=== PATIENT | male | born 1945 | race Hispanic/Latino ===

== ENCOUNTER 2018-05-25 10:11 | Observation (INO) | payer MEDICARE ==
--- NOTE | 2018-05-25 10:41 | C.PDOC ---
History Of Present Illness 72 y/o male with history of thoracic aortic aneurysm s/p repair and Aortic valve replacement 9 years ago presents to ED sent by primer assembler Dr. Fragoso for evaluation of pressure chest pain retro-sternal intermittently for 1 month. Pat ient states chest pain is worse with exertion and associated with sob. Denies fever, chills, nausea, vomiting, headache, vision changes, palpitations, abdominal pain, leg swelling or any other complaints at this time. Time Seen by Provider: 05/25/18 10:35 Chief Complaint (Nursing): Chest Pain History Per: Patient History/Exam Limitations: no limitations Onset/Duration Of Symptoms: Days Current Symptoms Are (Timing): Still Present Past Medical History Reviewed: Historical Data, Nursing Documentation, Vital Signs Vital Signs: Last Vital Signs Temp 99 F 05/25/18 10:15 Pulse 94 H 05/25/18 10:15 Resp 18 05/25/18 10:15 BP 165/75 H 05/25/18 10:15 Pulse Ox 98 05/25/18 10:15 - Medical History PMH: No Chronic Diseases Surgical History: No Surg Hx Family History: States: No Known Family Hx - Social History Hx Alcohol Use: No Hx Substance Use: No Review Of Systems Constitutional: Negative for: Fever, Chills Eyes: Negative for: Vision Change Cardiovascular: Positive for: Chest Pain Respiratory: Positive for: Shortness of Breath. Negative for: Cough Gastrointestinal: Negative for: Nausea, Vomiting, Abdominal Pain Musculoskeletal: Negative for: Neck Pain, Shoulder Pain, Back Pain Skin: Negative for: Rash Neurological: Negative for: Weakness, Numbness, Headache, Dizziness Physical Exam - Physical Exam Appears: Well, Non-toxic, No Acute Distress Skin: Warm, Dry, No Rash Head: Atraumatic, Normacephalic Eye(s): bilateral: Normal Inspection, PERRL, EOMI Ear(s): Bilateral: Normal Nose: Normal Oral Mucosa: Moist Throat: Normal Neck: Normal ROM, Supple Chest: Symmetrical Cardiovascular: Rhythm Regular Respiratory: Normal Breath Sounds, No Accessory Muscle Use, No Rales, No Rhonchi, No Wheezing Gastrointestinal/Abdominal: Normal Exam, Bowel Sounds (normoactive), Soft, No Tenderness, No Guarding, No Rebound Back: Normal Inspection, No CVA Tenderness, No Vertebral Tenderness, No Paraspinal Tenderness Extremity: Normal ROM, No Pedal Edema, Capillary Refill (<2 seconds) Extremity: Bilateral: Atraumatic, No Pedal Edema, Normal Color And Temperature, Normal ROM Pulses: Left Radial: Normal, Right Radial: Normal, Left Dorsalis Pedis: Normal, Right Dorsalis Pedis: Normal Neurological/Psych: Oriented x3, Normal Speech, Normal Cognition, Normal Cranial Nerves, Normal Motor, Normal Sensation Gait: Steady ED Course And Treatment - Laboratory Results Result Diagrams: 05/25/18 10:55 05/25/18 10:55 Lab Interpretation: Normal ECG: Interpreted By Me, Viewed By Me ECG Rhythm: Sinus Rhythm Interpretation Of ECG: Normal intervals, No stemi Rate From EC (BPM) O2 Sat by Pulse Oximetry: 98 (RA) Pulse Ox Interpretation: Normal Medical Decision Making Medical Decision Making: Plan: * CBC, CMP * Mg, Phos * Coags * Troponin * EKG * CT dissection study * Echo Progress: 11:20 Case and diagnostic results discussed with Dr. Fragoso, patient's primer assembler. Requests CTA chest to r/o dissection and 2D transthoracic echo as per him with admission to his service for observation, diagnosis of chest pain. Cardiology will follow results of CTA and ECHO. Plan of care discussed with patient, who is agreeable to inpatient observation. Resting comfortably in stretcher with stable vital signs at this time. Disposition Discussed With .: Jose Fragoso Comment: Recommends CTA chest and 2D ECHO in addition to typical chest pain workup. WIll see patient in hospital, asks for admission to his service. Doctor Will See Patient In The: Hospital Counseled Patient/Family Regarding: Studies Performed - Disposition Disposition: HOSPITALIZED Disposition Time: 12:00 Condition: STABLE - Clinical Impression Clinical Impression: Chest pain - PA / RIPENING ROOM OPERATOR / Resident Statement MD/DO has reviewed & agrees with the documentation as recorded. - Scribe Statement The provider has reviewed the documentation as recorded by the Jeremy Anderson All medical record entries made by the Jeremy were at my direction and personally dictated by me. I have reviewed the chart and agree that the record accurately reflects my personal performance of the history, physical exam, med ical decision making, and the department course for this patient. I have also personally directed, reviewed, and agree with the discharge instructions and disposition.
[2018-05-25 11:00] LABS: BASO % 0.6 % (0.0-2.0); EOS # 0.2 K/uL (0.0-0.7); EOS % 2.9 % (0.0-4.0); HEMOGLOBIN 13.2 g/dL (12.0-18.0); LYMPH # 0.4 K/uL (1.0-4.3); LYMPH % 8.4 % (20.0-40.0); MEAN CELL VOLUME 89.7 fL (80.0-94.0); MEAN CORPUSCULAR HEMOGLOBIN 31.1 pg (27.0-31.0); MEAN CORPUSCULAR HGB CONC 34.6 g/dL (33.0-37.0); MEAN PLATELET VOLUME 7.7 fL (7.2-11.7); MONO # 0.6 K/uL (0.0-0.8); MONO % 11.2 % (0.0-10.0); NEUT % 76.9 % (50.0-75.0); PLATELET COUNT 142 K/uL (130-400); RBC 4.24 Mil/uL (4.40-5.90); WHITE BLOOD COUNT 5.2 K/uL (4.8-10.8)
[2018-05-25 11:13] LABS: ALB/GLOB RATIO 1.3 (1.0-2.1); ALBUMIN 3.9 g/dL (3.5-5.0); ALT/SGPT 32 U/L (21-72); AST/SGOT 40 U/L (17-59); BLOOD UREA NITROGEN 18 mg/dL (9-20); CALCIUM 8.3 mg/dl (8.6-10.4); GFR NON-AFRICAN AMERICAN > 60
[2018-05-25 11:14] LABS: INR 2.5; PROTHROMBIN TIME 27.2 SECONDS (9.7-12.2)
[2018-05-25 11:45] LABS: BANDS 1 % (0-2); EOSINOPHIL 1 % (0-4); LYMPHOCYTE 8 % (20-40); MONOCYTE 4 % (0-10); NEUTROPHIL 86 % (50-75); TOTAL CELLS COUNTED 100
[2018-05-25 11:46] LABS: PLATELET ESTIMATE NORMAL (NORMAL)
[2018-05-25] MEDS ORDERED: Iodixanol 320 MG/ML 100 ML BOTTLE IV ONE (13:11)
--- NOTE | 2018-05-25 14:19 | CT ---
Date of service: 05/25/2018 CT Dissection protocol Indication: r/o aortic dissection; h/o aneurysm repair and AVR Technique: Contiguous axial images were obtained through the chest/abdomen without and with intravenous contrast enhancement utilizing dissection protocol technique. Sagittal and coronal reconstructions were generated and reviewed. This CT exam was performed using 1 or more of the following dose reduction techniques: Automated exposure control, adjustment of the MAA and/or kV according to patient size, and/or use of iterative reconstruction technique. Radiation dose (DLP): 1817.33 MGy-cm. Contrast: 100 cc Visipaque 320 Comparison: None available. Findings: Visualized portions of the inferior thyroid gland: Mildly heterogeneous right lower pole. The mediastinal and hilar vascular structures appear within normal limits. The heart appears within normal limits of size. Caliber change involving the ascending aorta presumably related to prior aortic aneurysm repair. No evidence of thoracic aorta dissection or aneurysmal dilatation at this time. Mild atherosclerotic calcifications of the aorta present. Aortic valve prosthesis. No focal consolidation. No pleural effusion. No pneumothorax. No suspicious pulmonary nodules measuring greater than 5 mm. There is normal course and contour of the abdominal aorta and common iliac arteries. The celiac artery origin is widely patent. The superior mesenteric artery origin is widely patent. The inferior mesenteric artery origin is patent. Bilateral renal arteries both appear widely patent. The liver appears within normal limits of size and morphology. The pancreas, spleen, adrenal glands, and gallbladder appear unremarkable. The kidneys enhance symmetrically without evidence of hydronephrosis or obstructing renal calculi. Punctate nonobstructing bilateral renal calculi. Numerous large bilateral renal cysts. Small hiatal hernia. The stomach is nondistended. Included bowel loops appear within normal limits of caliber without evidence of obstruction. Diverticulosis without CT evidence of acute diverticulitis. The appendix appears within normal limits of caliber. No secondary signs of acute appendicitis. Sub cm mesenteric lymph nodes. Mild haziness of the mesentery. Degenerative changes of the spine. Median sternotomy wires. Impression: Caliber change involving the ascending aorta presumably related to prior aortic aneurysm repair. No evidence of thoracic aorta dissection or aneurysmal dilatation at this time. Mild atherosclerotic calcifications of the aorta present. Aortic valve prosthesis. Punctate nonobstructing bilateral renal calculi. Numerous large bilateral renal cysts. Small hiatal hernia. Diverticulosis without CT evidence of acute diverticulitis. Sub cm mesenteric lymph nodes, nonspecific. Mild haziness of the mesentery. Visualized portions of the inferior thyroid gland: Mildly heterogeneous right lower pole.
--- NOTE | 2018-05-25 14:28 | CP.PCM.CON ---
History of Present Illness - History of Present Illness History of Present Illness: 72 y/o male with history of thoracic aortic aneurysm s/p repair and Aortic valve replacement 9 years ago presents to ED sent for evaluation of pressure chest pain retro-sternal intermittently for 1 month. Patient states chest pain worse with exertion and associated with sob, denies fever, chills, nausea, vomiting, headache, abdominal pain, leg swelling or any other complaints at this time. Chief Complaint (Nursing): Chest Pain History Per: Patient History/Exam Limitations: no limitations Onset/Duration Of Symptoms: Days Current Symptoms Are (Timing): Still Present Past Medical History Reviewed: Historical Data, Nursing Documentation, Vital Signs Vital Signs: Last Vital Signs Temp 99 F 05/25/18 10:15 Pulse 94 H 05/25/18 10:15 Resp 18 05/25/18 10:15 BP 165/75 H 05/25/18 10:15 Pulse Ox 98 05/25/18 10:15 - Medical History PMH: No Chronic Diseases Surgical History: No Surg Hx Family History: States: No Known Family Hx - Social History Hx Alcohol Use: No Hx Substance Use: No Review Of Systems Constitutional: Negative for: Fever, Chills Cardiovascular: Positive for: Chest Pain Respiratory: Positive for: Shortness of Breath. Negative for: Cough Gastrointestinal: Negative for: Nausea, Vomiting Musculoskeletal: Negative for: Back Pain Skin: Negative for: Rash Physical Exam - Physical Exam Appears: Non-toxic, No Acute Distress Skin: Warm, Dry, No Rash Head: Atraumatic, Normacephalic Eye(s): bilateral: Normal Inspection Oral Mucosa: Moist Neck: Normal ROM, Supple Chest: Symmetrical Cardiovascular: Rhythm Regular Respiratory: Normal Breath Sounds, No Accessory Muscle Use, No Rales, No Rhonchi, No Wheezing Gastrointestinal/Abdominal: Soft, No Tenderness, No Guarding, No Rebound Extremity: Normal ROM, No Pedal Edema, Capillary Refill (<2 seconds) Neurological/Psych: Oriented x3, Normal Speech, Normal Cognition Past Patient History - Past Social History Smoking Status: Never Smoked - PSYCHIATRIC Hx Substance Use: No - SURGICAL HISTORY Hx Surgeries: Yes Hx Abdominal Aortic Aneurysm Repair: Yes Other/Comment: MECHANICAL AVR - ANESTHESIA Hx Anesthesia: Yes Hx Anesthesia Reactions: No Meds Allergies/Adverse Reactions: Allergies Allergy/AdvReac Type Severity Reaction Status Date / Time No Known Allergies Allergy Unverified 05/25/18 10:23 Results - Vital Signs Recent Vital Signs: Last Vital Signs Temp 99 F 05/25/18 10:15 Pulse 97 H 05/25/18 11:58 Resp 20 05/25/18 11:58 BP 134/80 05/25/18 11:58 Pulse Ox 98 05/25/18 12:58 - Labs Result Diagrams: 05/25/18 10:55 05/25/18 10:55 Labs: Laboratory Results - last 24 hr 05/25/18 05/25/18 05/25/18 10:55 10:55 10:55 WBC 5.2 RBC 4.24 L Hgb 13.2 Hct 38.1 MCV 89.7 MCH 31.1 H MCHC 34.6 RDW 13.0 Plt Count 142 MPV 7.7 Neut % (Auto) 76.9 H Lymph % (Auto) 8.4 L [place] % (Auto) 11.2 H Eos % (Auto) 2.9 Baso % (Auto) 0.6 Neut # (Auto) 4.0 Lymph # (Auto) 0.4 L [place] # (Auto) 0.6 Eos # (Auto) 0.2 Baso # (Auto) 0.0 Neutrophils % (Manual) 86 H Band Neutrophils % 1 Lymphocytes % (Manual) 8 L Monocytes % (Manual) 4 Eosinophils % (Manual) 1 Platelet Estimate Normal RBC Morphology Normal PT 27.2 H INR 2.5 APTT 44 H Sodium 135 Potassium 4.2 Chloride 101 Carbon Dioxide 24 Anion Gap 13 BUN 18 Creatinine 1.0 Est GFR ( Amer) > 60 Est GFR (Non-Af Amer) > 60 Random Glucose 187 H Calcium 8.3 L Phosphorus 2.3 L Magnesium 1.8 Total Bilirubin 0.7 AST 40 ALT 32 Alkaline Phosphatase 61 Troponin I 0.0120 Total Protein 6.9 Albumin 3.9 Globulin 3.1 Albumin/Globulin Ratio 1.3 Assessment & Plan - Assessment and Plan (Free Text) Assessment: 1. Chest Pain 2. HTN 3. Hx of Aortic aneurysm and s/p repair 4. Mechanical AVR CT angio and ECHO: Negative for acute pathology Can d/c home Out patient follow up
[2018-05-25 14:45] VITALS: BP 134/80
--- NOTE | 2018-05-25 15:09 | CP.PCM.PN ---
Subjective - Date & Time of Evaluation Date of Evaluation: 05/25/18 Time of Evaluation: 15:00 - Subjective Subjective: Patient seen at the bed side , denies any chest pain, dizziness, sob, vss and labs reviewed - stable Objective - Vital Signs/Intake and Output Vital Signs (last 24 hours): Temp Pulse Resp BP Pulse Ox 99 F 85 14 134/80 99 05/25/18 10:15 05/25/18 14:41 05/25/18 14:41 05/25/18 14:41 05/25/18 14:41 - Labs Labs: 05/25/18 10:55 05/25/18 10:55 PT 27.2 SECONDS (9.7-12.2) H 05/25/18 10:55 INR 2.5 05/25/18 10:55 APTT 44 SECONDS (21-34) H 05/25/18 10:55 Assessment and Plan - Assessment and Plan (Free Text) Assessment: A/P 72 y/o male with history of thoracic aortic aneurysm s/p repair and Aortic valve replacement 9 years [address] Dr[address] Fragoso to [facility] ER for evaluation of chest pain troponin x1- negative CT done - Caliber change involving the ascending aorta presumably related to prior aortic aneurysm repair. No evidence of thoracic aorta dissection or aneurysmal dilatation at this time. Mild atherosclerotic calcifications of the aorta present. Aortic valve prosthesis. echo done and reviewed bt [facility] Rose D/W With Dr. Fragoso, cleared for discharge home today and f/u with Dr. Richmond jacobo ein 4 months Discharge plan discussed with patient
[2018-05-25 15:34] VITALS: PULSE 82; RESP 16; TEMP 98.4
--- NOTE | 2018-05-25 17:06 | CARD ---
APPROVED REPORT Date of service: 05/25/2018 EXAM: Two-dimensional and M-mode echocardiogram with Doppler and color Doppler. Other Information Quality : TDSRhythm : INDICATION Aortic Valve Disease Chest Pain Surgery/Intervention Status/Post Aortic Valve Replacement: Mechanical 2D DIMENSIONS IVSd1.2 (0.7-1.1cm)LVDd4.2 (3.9-5.9cm) PWd0.9 (0.7-1.1cm)LA [id number] (18-58mL) LVDs2.7 (2.5-4.0cm)FS (%) 35.2 % LVEF (%)45.0 (>50%) M-Mode DIMENSIONS Left Atrium (MM)3.87 (2.5-4.0cm)IVSd0.94 (0.7-1.1cm) Aortic Root3.12 (2.2-3.7cm)LVDd4.47 (4.0-5.6cm) Aortic Cusp Exc.1.80 (1.5-2.0cm)PWd0.82 (0.7-1.1cm) FS (%) 40 %LVDs2.68 (2.0-3.8cm) Aortic Valve AoV Peak Vvaoivag593.5cm/sAoV VTI40.0cmAO Peak GR.25mmHg AO Mean GR.14mmHg Mitral Valve MV E Msoyauhp99.7cm/sMV A Yvmbxfed73.3cm/sE/A ratio0.5 TDI Lateral E' Peak V8.61cm/sMedial E' Peak V5.96cm/sE/Lateral E'4.8 E/Medial E'7.0 Tricuspid Valve TR Peak Atyqkzbj930xe/sTR Peak Gr.81ypSyRYOB97wmXy LEFT VENTRICLE The left ventricle is normal size. There is normal left ventricular wall thickness. The systolic function is mildly impaired. Septal hypokinesis Transmitral Doppler flow pattern is Grade I-abnormal relaxation pattern. RIGHT VENTRICLE The right ventricle is normal size. There is normal right ventricular wall thickness. The right ventricular systolic function is normal. ATRIA The left atrium size is normal. The right atrium size is normal. AORTIC VALVE The prosthetic aortic valve is not well visualized. MITRAL VALVE The mitral valve is mildly thickened. There is no mitral valve stenosis. There is no mitral valve regurgitation noted. TRICUSPID VALVE There is trace tricuspid regurgitation. PULMONIC VALVE There is trace pulmonic valvular regurgitation. GREAT VESSELS The aortic root is normal in size. <Conclusion> There is normal left ventricular wall thickness. The systolic function is mildly impaired. Septal hypokinesis Transmitral Doppler flow pattern is Grade I-abnormal relaxation pattern. The prosthetic aortic valve is not well visualized with mean Systolic gradient of 14 mmHg The aortic root is normal in size.
[2018-05-26 01:06] VITALS: O2SAT 98
--- NOTE | 2018-05-26 06:57 | CARD ---
APPROVED REPORT Date of service: 05/25/2018 EKG Measurement Heart [id number] <Conclusion> Normal sinus rhythm Possible Left atrial enlargement Nonspecific T wave abnormality Abnormal ECG
== END 2018-05-25 15:32 | disposition home or self-care (01) ==
LOC: C.ER 10:11 → C.9E 12:33 → C.5S 14:29 → C.9E 14:35
PROVIDERS: ADMIT Internal Medicine Cardiovascular Disease; ATTEND Internal Medicine Cardiovascular Disease
DX: R07.9 Chest pain, unspecified (principal); I10 Essential (primary) hypertension; Z86.79 Personal history of other diseases of the circulatory system; Z95.2 Presence of prosthetic heart valve; R42 Dizziness and giddiness
CPT/HCPCS: 71275; 74175; 80053; 83735; 84100; 84484; 85025; 85610; 85730; 93306; G0378; Q9967